=== PATIENT | female | born 1945 | race Caucasian/White ===

== ENCOUNTER 2022-11-15 13:06 | Emergency (ER) | payer BC, MEDICARE ==
[2022-11-15] MEDS ORDERED: Morphine 4 MG/ML VIAL ONE (13:23)
[2022-11-15] MEDS ORDERED: Ondansetron PF 4 MG/2 ML Vial ONE (13:23)
[2022-11-15] MEDS ORDERED: Ketamine 50 MG/ML (10ML VIAL) ONE (15:27)
[2022-11-15] MEDS ORDERED: HYDROcodone/Acetaminophen 5/325 mg Tablet ONE (17:08)
[2022-11-15] MEDS ORDERED: Ondansetron ODT 4 MG TAB ONE (17:25)
== END 2022-11-15 18:02 | disposition home or self-care (01) ==
LOC: ERS 13:06
DX: S42.291A Other displaced fracture of upper end of right humerus, initial encounter for closed fracture (principal); W18.30XA Fall on same level, unspecified, initial encounter
CPT/HCPCS: 23650; 70450; 72125; 94760; 96374; 96375; 99151; J2270; J2405; Q0162